=== PATIENT | female | born 1990 | race Asian ===

== ENCOUNTER 2017-03-31 21:15 | Emergency (ER) | payer OTHER ==
[2017-03-31 22:07] LABS: BASOPHIL % 0.5 % (0-2); PLATELET COUNT 291 x10^3mcL (130-400); RED CELL DISTRIBUTION WIDTH 13.3 % (11.5-14.5)
[2017-03-31 22:18] LABS: CALCIUM 9.1 mg/dL (8.5-10.1); CARBON DIOXIDE 24.7 mmol/L (21-32); CHLORIDE SERUM 104 mmol/L (98-107); CREATININE SERUM 0.9 mg/dL (0.6-1.0); GFR1 > 60 mL/min; GLUCOSE SERUM 92 mg/dL (74-106); POTASSIUM SERUM 3.8 mmol/L (3.5-5.1); SODIUM SERUM 142 mmol/L (136-145)
[2017-03-31 22:29] LABS: ALBUMIN 4.3 g/dL (3.4-5.0); ALKALINE PHOSPHATASE 57 U/L (46-116); ALT/SGPT 14 U/L (14-59); AST/SGOT 10 U/L (15-37); BILIRUBIN TOTAL 0.35 mg/dL (0.20-1.00); C REACTIVE PROTEIN < 0.2 mg/dL (<=0.9); TOTAL PROTEIN, SERUM 8.4 g/dL (6.4-8.2)
[2017-03-31 22:30] LABS: CK-MB < 0.5 ng/mL (0-3.6); CREATINE KINASE 54 U/L (26-192)
[2017-03-31 22:31] LABS: FREE T4 1.08 ng/dL (0.76-1.46); FREE THYROXINE INDEX 3.3 ug/dL (1.4-4.5); T3 TOTAL 0.94 ng/mL; T4(THYROXINE) 8.8 ug/dL (4.7-13.3)
[2017-03-31 22:39] LABS: microscopic required? YES; urine erythrocyte TRACE (NEGATIVE)
[2017-03-31 23:36] VITALS: BP 111/62
== END 2017-03-31 23:36 | disposition left against medical advice (07) ==
LOC: ED 21:15
PROVIDERS: Specialist
DX: L08.89 Other specified local infections of the skin and subcutaneous tissue (principal); I89.1 Lymphangitis; F90.9 Attention-deficit hyperactivity disorder, unspecified type; Z41.1 Encounter for cosmetic surgery
CPT/HCPCS: 83880; 84439; J1200; J2543; J3490; J7030

== ENCOUNTER 2019-12-12 18:58 | Emergency (ER) | payer OTHER ==
[~2019-12-12] VITALS: Ht 152.4 cm; Wt 45.8 kg
[2019-12-12 19:26] VITALS: BP 117/75; Ht 152.4 cm; Wt 45.8 kg
== END 2019-12-12 21:55 | disposition home or self-care (01) ==
LOC: ED 18:58
DX: S09.8XXA Other specified injuries of head, initial encounter (principal); H93.12 Tinnitus, left ear; M25.512 Pain in left shoulder; V49.49XA Driver injured in collision with other motor vehicles in traffic accident, initial encounter; Y93.I9 Activity, other involving external motion; Y92.488 Other paved roadways as the place of occurrence of the external cause; Y99.8 Other external cause status

== ENCOUNTER 2020-03-23 15:31 | Emergency (ER) | payer OTHER ==
[~2020-03-23] VITALS: Ht 152.4 cm; Wt 47.2 kg
[2020-03-23 15:42] VITALS: Ht 152.4 cm; Wt 47.2 kg
[2020-03-23 16:41] VITALS: BP 94/49
== END 2020-03-23 17:10 | disposition home or self-care (01) ==
LOC: ED 15:31
DX: L50.0 Allergic urticaria (principal)
CPT/HCPCS: J7512; Q0163